=== PATIENT | female | born 1955 | race Caucasian/White ===

== ENCOUNTER 2020-01-04 13:15 | Outpatient (CLI) | payer MEDICARE, SELFPAY ==
--- NOTE | 2020-01-04 13:27 | XR_ITS ---
WS: [id number] XR lumbar spine 2-3V* [id number] REASON FOR EXAM: back pain FINDINGS: Scoliotic curve convex to the right is seen. There is settling of the disc space L1-L2 from degenerate disc changes. The lumbosacral angle was normal. There were no fractures of the vertebral bodies seen. XR/XR lumbar spine 2-3V* [id number] IMPRESSION: Scoliosis convex to the right Degenerated disc changes L1-L2.
== END 2020-01-04 13:16 | disposition home or self-care (01) ==
LOC: RAD 13:21
PROVIDERS: PCP Nurse Practitioner Family; Visit Provider Nurse Practitioner Family
DX: M54.41 Lumbago with sciatica, right side (principal); M47.896 Other spondylosis, lumbar region
CPT/HCPCS: 72100

== ENCOUNTER → 2020-03-14 09:04 | Outpatient (BNVA) | payer MEDICARE, SELFPAY | PROVIDERS: PCP Nurse Practitioner Family; Visit Provider Emergency Medicine | DX: R68.89 Other general symptoms and signs (principal); R11.0 Nausea; Z11.59 Encounter for screening for other viral diseases; R50.9 Fever, unspecified | CPT/HCPCS: 87400; 87635 ==

== ENCOUNTER → 2020-05-30 09:51 | Outpatient (BNVA) | payer MEDICARE, SELFPAY | PROVIDERS: PCP Nurse Practitioner Family; Visit Provider Emergency Medicine | DX: M54.5 Low back pain (principal); M25.511 Pain in right shoulder | CPT/HCPCS: 73030 ==

== ENCOUNTER → 2020-06-05 18:36 | Outpatient (BNVA) | payer MEDICARE, SELFPAY | PROVIDERS: PCP Nurse Practitioner Family; Visit Provider Family Medicine | DX: M54.5 Low back pain (principal); Z12.39 Encounter for other screening for malignant neoplasm of breast; Z13.820 Encounter for screening for osteoporosis; M85.80 Other specified disorders of bone density and structure, unspecified site; R53.83 Other fatigue; R63.5 Abnormal weight gain; E55.9 Vitamin D deficiency, unspecified; Z13.220 Encounter for screening for lipoid disorders; Z13.6 Encounter for screening for cardiovascular disorders; I10 Essential (primary) hypertension; Z78.0 Asymptomatic menopausal state | CPT/HCPCS: 80053; 80061; 82652; 84443; 85025 ==

== ENCOUNTER 2020-06-07 09:54 | Outpatient (CLI) | payer MEDICARE, SELFPAY ==
--- NOTE | 2020-06-07 10:00 | CT_ITS ---
WS: [id number] CT LUMBAR SPINE TECHNIQUE: Noncontrast CT of the lumbar spine with coronal and sagittal reformatted images. CLINICAL INFORMATION: low back pain, chronic, with right leg radiculopathy COMPARISON: None. DLP: 9.[address] scans at [facility] use at least one of these dose optimization techniques: automat ed exposure control; mA and/or kV adjustment per patient size (includes targeted exams where dose is matched to clinical indication); or iterative reconstruction. FINDINGS: Lumbar scoliosis convex right. No acute compression fractures. L1-L2: Moderate facet arthropathy. Spinal canal foramen are patent. L2-L3: Mild disc bulging with mild central canal stenosis. Slight impingement left subarticular reces s. Mild left foraminal narrowing. Moderate facet arthropathy. L3-L4: Mild disc bulging with moderate central canal stenosis. Mild left and no right foraminal narro wing. Moderate facet arthropathy. Impingement on the left subarticular recess. L4-L5: Mild disc bulging with osteophytic ridging. Moderate to severe central canal stenosis. Advance d facet arthropathy. Moderate right and no significant left foraminal narrowing. Impingement subartic ular recess bilaterally. L5-S1: Shallow central disc extrusion. Slight contact of the traversing S1 nerve roots. Foramen are p atent. Moderate facet arthropathy. Visualized pelvic bony structures: Normal. Paravertebral soft tissues: Normal. CT/CT lumbar spine wo con* [id number] IMPRESSION: 1. Lumbar scoliosis convex right. No acute compression fractures. 2. Moderate central canal stenosis L3-4 and moderate to severe central canal s tenosis L4-5 due to disc bulging with facet arthropathy and ligamentum flavum h ypertrophy. 3. Mild central canal stenosis L3-4 with slight impingement on the left subart icular recess. 4. Multilevel mild to moderate foraminal narrowing described above worse at ri ght L4-5. 5. Moderate to advanced facet arthropathy L3-L4 and L4-L5.
== END 2020-06-07 09:55 | disposition home or self-care (01) ==
PROVIDERS: PCP Family Medicine; Visit Provider Emergency Medicine
DX: G89.29 Other chronic pain (principal); M54.16 Radiculopathy, lumbar region; M48.061 Spinal stenosis, lumbar region without neurogenic claudication; M47.816 Spondylosis without myelopathy or radiculopathy, lumbar region
CPT/HCPCS: 72131

== ENCOUNTER 2020-07-23 13:38 | Outpatient (CLI) | payer MEDICARE, SELFPAY ==
--- NOTE | 2020-07-23 14:00 | MM_ITS ---
WS: [id number] BILATERAL DIGITAL SCREENING MAMMOGRAPHY WITH CAD CLINICAL INFORMATION: Screening HISTORY: Screening mammogram. Bilateral breast soreness. Bilateral palpable areas. COMPARISON: None. TECHNIQUE: Bilateral CC and MLO views. FINDINGS: Palpable markers upper outer both breasts. The breasts are composed of heterogeneous fibroglandular density tissue, which can limit the detectio n of small underlying mass lesions. No suspicious mass, asymmetry, calcifications, or architectural d istortion. Slight spiculated asymmetry deep to the palpable marker upper outer left breast. No defini te mammographic abnormalities deep to the right palpable marker. Spot compression views and ultrasoun d recommended for the palpable areas of concern. MM/[place] [id number] IMPRESSION: BI-RADS: 0-Incomplete: Need additional imaging evaluation FOLLOW UP: Need Additional Imaging BILATERAL PALPABLE MARKER BOTH BREASTS. RECOMMEND SPOT COMPRESSION VIEWS AND UL TRASOUND OF THE PALPABLE AREAS BILATERAL BREASTS.
--- NOTE | 2020-07-23 14:47 | XR_ITS ---
WS: [id number] DEXA (DUAL ENERGY X-RAY ABSORPTIOMETRY) Bone mineral density was performed using a Genie[employer] machine. HISTORY: Screening, hx osteopenia COMPARISON: None available. Lumbar spine BMD (L1-L4): 1.182 g/cm2 T score: 0.0 Z score: 1.3 Total hip BMD: Left: 0.818 g/cm2. T score: -1.5 Z score: -0.5 Right: 0.825 g/cm2. T score: -1.4 Z score: -0.4 10 year probability of a major osteoporotic fracture is 11%. XR/XR DEXA axial skeleton* [id number] IMPRESSION: OSTEOPENIA based upon the WHO classification for females.
== END 2020-07-23 13:39 | disposition home or self-care (01) ==
LOC: RADSHAW 13:42
PROVIDERS: PCP Family Medicine; Visit Provider Family Medicine
DX: Z12.31 Encounter for screening mammogram for malignant neoplasm of breast (principal); M85.80 Other specified disorders of bone density and structure, unspecified site; Z13.820 Encounter for screening for osteoporosis; Z78.0 Asymptomatic menopausal state; N64.89 Other specified disorders of breast
CPT/HCPCS: 77067; 77080

== ENCOUNTER 2020-08-26 08:05 | Outpatient (CLI) | payer MEDICARE, SELFPAY ==
--- NOTE | 2020-08-26 08:17 | US_ITS ---
WS: [id number] BILATERAL DIGITAL DIAGNOSTIC MAMMOGRAM MAMMOGRAPHY WITH CAD CLINICAL INFORMATION: BILATERAL PALPABLE AREAS COMPARISON: July 23, 2020 TECHNIQUE: Bilateral CC, MLO, and ML views. FINDINGS: The breasts are composed of heterogeneous fibroglandular density, which can limit the detection of sm all underlying mass lesions. Bilateral palpable markers. Dense parenchymal tissue upper outer left br east is unchanged. Ultrasound is pending. ULTRASOUND BREAST BILATERAL TECHNIQUE: Ultrasound bilateral breast focused area of concern. CLINICAL INFORMATION: BILATERAL PALPABLE AREAS COMPARISON: None. FINDINGS: Ultrasound right breast at the 9:00 to 3:00 position. A few dilated ducts. Tiny benign-appearing cyst s. No pathologic lesions. No lesions to target for biopsy. Ultrasound left breast at the 12:00 to 2 position. Dense parenchymal tissue. A few incidental dilated ducts. No suspicious lesions. No lesions to target for biopsy. US/US breast BI limited* [id number] IMPRESSION: BI-RADS: 2-Benign FOLLOW UP: 1 Year Follow-up Recommend return to annual screening mammography.
== END 2020-08-26 08:06 | disposition home or self-care (01) ==
LOC: RADSHAW 08:14
PROVIDERS: PCP Family Medicine; Visit Provider Family Medicine
DX: R92.8 Other abnormal and inconclusive findings on diagnostic imaging of breast (principal)
CPT/HCPCS: 76642; 77066

== ENCOUNTER → 2021-01-19 10:31 | Outpatient (BNVA) | payer MEDICARE, SELFPAY | PROVIDERS: PCP Family Medicine; Visit Provider Nurse Practitioner Family | DX: R07.89 Other chest pain (principal); I10 Essential (primary) hypertension; E03.9 Hypothyroidism, unspecified | CPT/HCPCS: 80048; 84439; 84443; 84481 ==

== ENCOUNTER → 2021-07-29 09:32 | Outpatient (BNVA) | payer MEDICARE, SELFPAY | PROVIDERS: PCP Family Medicine; Visit Provider Family Medicine | DX: M54.5 Low back pain; E03.9 Hypothyroidism, unspecified; I10 Essential (primary) hypertension; J30.1 Allergic rhinitis due to pollen; R53.83 Other fatigue; E78.2 Mixed hyperlipidemia; M70.61 Trochanteric bursitis, right hip; N95.1 Menopausal and female climacteric states; J45.40 Moderate persistent asthma, uncomplicated; R53.82 Chronic fatigue, unspecified; N95.9 Unspecified menopausal and perimenopausal disorder | CPT/HCPCS: 80053; 80061; 83001; 83002; 84439; 84443; 84481; 85025 ==

== ENCOUNTER 2021-10-24 10:31 | Emergency (ER) | payer MEDICARE, OTHER, SELFPAY ==
[2021-10-24 10:38] VITALS: BP 158/78; PULSE 79; RESP 16; TEMP 36.7; O2SAT 95; BMI 32.2
--- NOTE | 2021-10-24 10:52 | CT_ITS ---
WS: [id number] CT CERVICAL SPINE HISTORY: fall, romano TECHNIQUE: Contiguous 2.5 mm axial imaging performed through the entire cervical spine. Sagittal and coronal reformats also performed. All CT scans at [facility] use at least one of these dose o ptimization techniques: automated exposure control; mA and/or kV adjustment per patient size (include s targeted exams where dose is matched to clinical indication); or iterative reconstruction. DLP: 560.45 mGy.cm COMPARISON: None available. Straightening of the normal cervical lordosis. Prior anterior cervical fusion with plate and screws e xtends from C4 to C7. There is partial. Complete fusion across the C3 C4-5, C5-6 and C6-7 disc spaces . No hardware fracture identified. There is a small bony osteophyte protruding posteriorly from the b ase of the odontoid. No contact on the cord. Mild disc space narrowing at C7-T1. C2-C3: Vertebral body osteophytes encroaching into the central thecal sac. Very mild central and RIGH T foraminal stenosis. C3-C4: Bilateral facet joint arthritis, most significant on the RIGHT. Moderate RIGHT foraminal and m ild LEFT foraminal stenosis. C4-C5: No stenosis or fracture. C5-C6: No stenosis or fracture. C6-C7: No stenosis or fracture. C7-T1: No stenosis or fracture. Thyroid. Small centimeter nodule in the atrophy RIGHT thyroid. CT/CT cervical spin wo con* [id number] IMPRESSION: 1. No cervical spine fracture. 2. Prior anterior cervical fusion from C4 to C7 with no fractures involving th e hardware. 3. Moderate foraminal stenosis on the RIGHT at C3-4.
--- NOTE | 2021-10-24 10:52 | CT_ITS ---
WS: [id number] CT HEAD NONCONTRAST HISTORY: fall, romano, vomiting TECHNIQUE: Contiguous axial imaging performed through the brain in 2.5 mm imaging. Bone and soft tiss ue windows. Sagittal and coronal reformats reviewed. All CT scans at [facility] use at least one of these dose optimization techniques: automated exposure control; mA and/or kV adjustment per pa tient size (includes targeted exams where dose is matched to clinical indication); or iterative recon struction. DLP: 920.23 mGy.cm COMPARISON: None available. No acute intracranial hemorrhage, midline shift or mass effect. No atrophy or prior infarcts or herniation. Mild chronic microvascular ischemic disease. Ventricles: Normal size with no hydrocephalus. Paranasal sinuses: As visualized are clear. Mastoid air cells: Well pneumatized. Calvarium and scalp: No skull fracture. There is a small amount of induration in the soft tissues ove r the lateral LEFT frontal bone from the recent trauma. CT/CT head wo con* [id number] IMPRESSION: 1. No acute intracranial hemorrhage or edema. 2. Minimal soft tissue induration from the trauma over the LEFT lateral fronta l bone.
--- NOTE | 2021-10-24 11:02 | XR_ITS ---
WS: [id number] LEFT WRIST: 3 VIEW(S) TECHNIQUE: PA, oblique and lateral. HISTORY: fall COMPARISON: None available. Complex radial fracture with extension into the radiocarpal joint. Slight impaction and dorsal angula tion. No joint space abnormality. Large amount of soft tissue edema surrounding the wrist. XR/XR wrist LT min 3V* [id number] IMPRESSION: Comminuted, mildly displaced intra-articular fracture distal radius.
--- NOTE | 2021-10-24 11:02 | XR_ITS ---
WS: [id number] LEFT FOREARM 2 VIEWS HISTORY: fall COMPARISON: None available. Complex fracture with mild comminution and impaction involving the radius with extension to the radio carpal joint. Very slight posterior angulation. The ulna is intact. Mild diffuse soft tissue edema around the distal forearm. XR/XR forearm LT 2V [id number] IMPRESSION: 1. Complex fracture involving the distal radius with slight dorsal angulation and intra-articular extension. 2. No ulnar fracture.
--- NOTE | 2021-10-24 11:25 | ED_ITS ---
HPI - Extremity Problem General: Chief complaint: Extremity Injury, Upper Stated complaint: PT said has broken L arm Time Seen by Provider: 10/24/21 10:47 History of Present Illness: HPI Narrative: Patient complains about left wrist pain and head injury from a fall this morning. Patient said she is walk across the floor tripped landed on her left side with her arm outstretched striking her hand and her left orthodoxy area. Did have a headache afterwards and vomited x1. MD Complaint: extremity pain and other (Head injury) Onset (ago): minute(s) Pain Consistency: constant Location: left and upper extremity Severity scale (1-10): 5 Quality: aching Radiation: proximal and distal Relieving factors: immobilization Exacerbating factors: range of motion and palpation Associated symptoms: Reports no associated symptoms; Deny chest pain, fever(s) or rash Review of Systems Const: Denies: fever(s), chills or body aches Eyes: Denies: change in vision or blurry vision ENMT: Denies: throat pain or nasal congestion Card: Denies: chest pain or dyspnea on exertion Resp: Denies: dyspnea, productive cough or non-productive cough GI: Reports: vomiting (X1 after a fall); Denies: abdominal pain or nausea Musc: Reports: extremity pain and joint pain (Left wrist) Skin/Breast: Reports: other (Abrasion to left orthodoxy); Denies: rash Neuro: Reports: headache(s) Psych: Denies: anxiety or depression Charly/Lymph: Denies: easy bruising PFSH ED PFSH: Medical History Allergic rhinitis Hypertension Low back pain potentially associated with radiculopathy Mixed hyperlipidemia Osteopenia after menopause Vitamin D deficiency Family History Family/Other Diabetes Other CAD (coronary artery disease) Hypertension Social History Alcohol intake: never Current gender identity: Female Female Reproductive History: Spontaneous abortions: No Physical Exam Const: COMMON NORMALS: no acute distress, average body habitus and patient oriented x3 HENMT: COMMON NORMALS: normocephalic HEAD & SCALP: normal to inspection and normocephalic FACE & SINUS: normal facial exam Eye: COMMON NORMALS: conjunctivae normal GENERAL EYE: appearance normal, both eyes and all related structures CONJUNCTIVA: Yes conjunctivae normal Neck/C-Spine: COMMON NORMALS: no JVD Chest: COMMONS NORMALS: normal inspection of the chest Resp: COMMON NORMALS: normal respiratory effort and clear to auscultation bilaterally AUSCULTATION: clear to auscultation bilaterally Cardio: COMMON NORMALS: no JVD, regular rate and regular rhythm RATE: regular rate RHYTHM: regular rhythm GI: COMMON NORMALS: Normal to inspection, nondistended, normoactive bowel sounds present Extremity: RIGHT UPPER EXTREMITY: Yes wrist (Tender with swelling radial side. Decreased range of motion to fingers due) Right wrist: Yes neurovascular exam (Intact warm and good sensation distally at the fracture) Neuro: COMMON NORMALS: patient oriented x3 and moves all extremities GAIT: Yes Normal gait present Skin: NARRATIVE SKIN EXAM: Small abrasion left orthodoxy area Course Vital Signs: Vital signs: Vital Signs Temperature 98.0 F 10/24/21 10:38 Pulse Rate 79 10/24/21 10:38 Respiratory Rate 16 10/24/21 10:38 Blood Pressure 158/78 10/24/21 10:38 Pulse Oximetry 95 10/24/21 10:38 Discharge Plan Discharge Prescriptions: No Action Zyrtec 10 mg capsule 10 mg PO QDAY RF: 0 hydralazine 10 mg tablet 10 mg PO BID PRN (Reason: very high blood pressure) 30 Days Qty: 30 RF: 0 tramadol 50 mg tablet 50 mg PO Q6H PRN (Reason: pain) Qty: 20 RF: 0 levothyroxine 25 mcg tablet 25 mcg PO DAILY 30 Days Qty: 30 RF: 5 spironolactone 25 mg tablet 25 mg PO DAILY 30 Days Qty: 30 RF: 5 montelukast 10 mg tablet 10 mg PO DAILY 30 Days Qty: 30 RF: 5 budesonide-formoterol [Symbicort] 160-4.5 mcg/actuation HFA aerosol inhaler 2 puff inhalation BID 30 Days Qty: 10.2 RF: 5 albuterol sulfate 90 mcg/actuation HFA aerosol inhaler 2 puff inhalation Q6H PRN (Reason: shortness of breath or wheezing) Qty: 8.5 RF: 5 cyclobenzaprine 10 mg tablet 10 mg PO TID PRN (Reason: muscle spasm) 30 Days Qty: 60 RF: 5 gabapentin 300 mg capsule 900 mg PO TID 30 Days Qty: 270 RF: 5 nitroglycerin 0.4 mg tablet, sublingual 0.4 mg SUBLINGUAL Q5M PRN (Reason: chest pain) Qty: 25 RF: 2 coenzyme Q10 100 mg capsule 100 mg PO DAILY RF: 0 metoprolol succinate 25 mg tablet extended release 24 hr 25 mg PO BID 30 Days Qty: 60 RF: 5 prednisone 20 mg tablet 40 mg PO DAILY 5 Days Qty: 10 RF: 0 doxycycline monohydrate 100 mg capsule 100 mg PO BID 10 Days Qty: 20 RF: 0 Coding Level of Care Code ED [employer]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
--- NOTE | 2021-10-24 11:50 | PC.NURSE ---
meghan su to apply volar splint.
[2021-10-24] MEDS: HYDROcodone-acetaminophen 5-325 mg Tablet 1 TAB PO (12:00)
[2021-10-24 12:08] VITALS: BP 152/93; PULSE 77; RESP 16; O2SAT 96
--- NOTE | 2021-10-28 09:22 | DCPLANNER ---
locker room manager had message to schedule a follow up appointment for patient with ortho. locker room manager called the ortho clinic, spoke with Kathleen, gave clinic patients information. locker room manager was told that patients information would be printed and reviewed. Clinic will call patient with appointment information.
--- NOTE | 2021-10-29 06:37 | DCPLANNER ---
Patient has a follow up appointment scheduled for Wednesday, October at 2:[address] Franz at [facility]. Clinic will call patient with appointment information.
--- NOTE | 2021-10-30 06:10 | DCPLANNER ---
Patient had a follow up appointment scheduled for 10.29.[address] Franz at [facility] - patient did attend appointment.
== END 2021-10-24 12:19 | disposition home or self-care (01) ==
PROVIDERS: Emergency Provider Nurse Practitioner Family; PCP Family Medicine
DX: S52.572A Other intraarticular fracture of lower end of left radius, initial encounter for closed fracture (principal); W19.XXXA Unspecified fall, initial encounter; S09.90XA Unspecified injury of head, initial encounter; M48.02 Spinal stenosis, cervical region
CPT/HCPCS: 29125; 70450; 72125; 73090; 73110; 99283

== ENCOUNTER → 2021-10-28 14:29 | Outpatient (BNVA) | payer MEDICARE, OTHER, SELFPAY | PROVIDERS: PCP Family Medicine; Visit Provider Nurse Practitioner Family | DX: R07.81 Pleurodynia (principal) | CPT/HCPCS: 71110 ==

== ENCOUNTER 2021-10-29 16:31 | Outpatient (CLI) | payer MEDICARE, OTHER, SELFPAY | END 2021-10-29 16:32 | disposition home or self-care (01) | LOC: SPT 16:31 | PROVIDERS: PCP Family Medicine; Visit Provider Specialist | DX: Z46.89 Encounter for fitting and adjustment of other specified devices (principal); S52.591D Other fractures of lower end of right radius, subsequent encounter for closed fracture with routine healing; X58.XXXD Exposure to other specified factors, subsequent encounter | CPT/HCPCS: 97760; L3982 ==

== ENCOUNTER → 2021-11-12 09:22 | Outpatient (BNVA) | payer MEDICARE, OTHER, SELFPAY | PROVIDERS: PCP Family Medicine; Visit Provider Specialist | DX: S52.592A Other fractures of lower end of left radius, initial encounter for closed fracture (principal); X58.XXXA Exposure to other specified factors, initial encounter | CPT/HCPCS: 73110 ==

== ENCOUNTER → 2021-11-27 08:15 | Outpatient (BNVA) | payer MEDICARE, OTHER, SELFPAY | PROVIDERS: PCP Family Medicine; Visit Provider Specialist | DX: S52.592A Other fractures of lower end of left radius, initial encounter for closed fracture (principal); M25.512 Pain in left shoulder; X58.XXXA Exposure to other specified factors, initial encounter | CPT/HCPCS: 73030; 73110 ==

== ENCOUNTER → 2021-12-15 15:26 | Outpatient (BNVA) | payer MEDICARE, OTHER, SELFPAY | PROVIDERS: PCP Family Medicine; Visit Provider Specialist | DX: S52.592A Other fractures of lower end of left radius, initial encounter for closed fracture (principal); X58.XXXA Exposure to other specified factors, initial encounter | CPT/HCPCS: 73110 ==

== ENCOUNTER 2021-12-22 06:00 | Outpatient (RCR) | payer MEDICARE, OTHER, SELFPAY | END 2021-12-29 23:59 | disposition home or self-care (01) | LOC: MOT 06:00 | PROVIDERS: PCP Family Medicine; Referring Provider Specialist; Visit Provider Specialist | DX: S52.92XD Unspecified fracture of left forearm, subsequent encounter for closed fracture with routine healing (principal) | CPT/HCPCS: 97018; 97110; 97140; 97166 ==

== ENCOUNTER 2021-12-29 14:26 | Outpatient (CLI) | payer MEDICARE, OTHER, SELFPAY ==
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
== END 2021-12-29 14:27 | disposition home or self-care (01) ==
LOC: RAD 14:28
PROVIDERS: PCP Family Medicine; Visit Provider Specialist
DX: G44.309 Post-traumatic headache, unspecified, not intractable (principal)
CPT/HCPCS: 70551

== ENCOUNTER 2021-12-30 06:00 | Outpatient (RCR) | payer MEDICARE, SELFPAY | END 2022-01-29 23:59 | disposition home or self-care (01) | LOC: MOT 06:00 | PROVIDERS: PCP Family Medicine; Referring Provider Specialist; Visit Provider Specialist | DX: S52.502D Unspecified fracture of the lower end of left radius, subsequent encounter for closed fracture with routine healing (principal); X58.XXXD Exposure to other specified factors, subsequent encounter | CPT/HCPCS: 97018; 97110; 97140 ==

== ENCOUNTER → 2022-01-26 10:16 | Outpatient (BNVA) | payer MEDICARE, SELFPAY | PROVIDERS: PCP Family Medicine; Visit Provider Specialist | DX: S52.592A Other fractures of lower end of left radius, initial encounter for closed fracture (principal); S52.502A Unspecified fracture of the lower end of left radius, initial encounter for closed fracture; M25.519 Pain in unspecified shoulder; S62.102A Fracture of unspecified carpal bone, left wrist, initial encounter for closed fracture; X58.XXXA Exposure to other specified factors, initial encounter | CPT/HCPCS: 73110 ==

== ENCOUNTER 2022-01-30 06:00 | Outpatient (RCR) | payer MEDICARE, SELFPAY | END 2022-02-28 23:59 | disposition home or self-care (01) | LOC: MOT 06:00 | PROVIDERS: PCP Family Medicine; Referring Provider Specialist; Visit Provider Specialist | DX: S52.502D Unspecified fracture of the lower end of left radius, subsequent encounter for closed fracture with routine healing (principal); X58.XXXD Exposure to other specified factors, subsequent encounter | CPT/HCPCS: 97018; 97110; 97140 ==

== ENCOUNTER → 2022-02-03 13:05 | Outpatient (BNVA) | payer MEDICARE, SELFPAY | PROVIDERS: PCP Family Medicine; Referring Provider Specialist; Visit Provider Orthopaedic Surgery | DX: M47.22 Other spondylosis with radiculopathy, cervical region (principal); Z98.1 Arthrodesis status; M54.2 Cervicalgia | CPT/HCPCS: 72050; 99203; 99204 ==

== ENCOUNTER → 2022-02-03 13:05 | Outpatient (BNVA) | payer MEDICARE, SELFPAY | PROVIDERS: PCP Family Medicine; Referring Provider Specialist; Visit Provider Orthopaedic Surgery | DX: M54.2 Cervicalgia (principal); M47.22 Other spondylosis with radiculopathy, cervical region | CPT/HCPCS: 72050 ==

== ENCOUNTER 2022-02-10 10:01 | Outpatient (CLI) | payer MEDICARE, SELFPAY ==
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
--- NOTE | 2022-02-10 10:15 | MR_ITS ---
WS: [id number] MRI CERVICAL SPINE NONCONTRAST AND CONTRAST TECHNIQUE: Sagittal T1, T2 and STIR imaging. Axial T2, gradient, and fiesta imaging. Post gadolinium images obtained. CLINICAL INFORMATION: pain COMPARISON: CT October 24, 2021 FINDINGS: Straightening of the normal cervical lordosis. Prior postoperative changes anterior cervical fusion C 4-C7 with interbody fusion. Hardware appears unchanged compared to October 24, 2021. No high-grade c entral canal stenosis. Cord signal is normal. C2-C3: No significant disc bulging. Moderate RIGHT bony foraminal narrowing. Moderate RIGHT facet art hropathy. Spinal canal is patent. C3-C4: Mild disc osteophyte complex with endplate ridging. Mild central canal stenosis. Moderate to a dvanced RIGHT facet arthropathy with moderate RIGHT bony foraminal narrowing. C4-C5: Postoperative changes ACDF. Moderate facet arthropathy. Spinal canal and foramen are patent. C5-C6: Postoperative changes ACDF. Moderate facet arthropathy. Spinal canal and foramen are patent. C6-C7: Postoperative changes ACDF. Spinal canal is patent. Mild RIGHT and no significant LEFT foramin al narrowing. Mild facet arthropathy. C7-T1: Postoperative changes anterior fusion at C7. Spinal canal is patent. Mild bilateral foraminal narrowing. Visualized brain stem structures: Normal. Prevertebral soft tissues: Normal. MR/MR cervical spine wo/w [id number] IMPRESSION: 1. Straightening of the normal cervical lordosis with prior ACDF C4-C7. No hig h-grade central canal stenosis. 2. Alignment is unchanged since the prior CT October 24, 2021. 3. Moderate to advanced RIGHT C3-C4 facet arthropathy with moderate RIGHT C3-C 4 bony foraminal narrowing. 4. Mild central canal stenosis C3-C4 due to mild disc osteophyte complex. 5. Moderate RIGHT C2-C3 bony foraminal narrowing with moderate RIGHT facet art hropathy. 6. Spinal canal and foramen are patent at the fusion levels. 7. Moderate facet arthropathy C4-C5 C5-C6. 8. Mild bilateral C7-T1 bony foraminal narrowing.
== END 2022-02-10 10:02 | disposition home or self-care (01) ==
LOC: RAD 10:03
PROVIDERS: PCP Family Medicine; Visit Provider Orthopaedic Surgery
DX: S52.502A Unspecified fracture of the lower end of left radius, initial encounter for closed fracture (principal); S53.32XA Traumatic rupture of left ulnar collateral ligament, initial encounter; S63.592A Other specified sprain of left wrist, initial encounter; X58.XXXA Exposure to other specified factors, initial encounter; M47.812 Spondylosis without myelopathy or radiculopathy, cervical region; M48.02 Spinal stenosis, cervical region
CPT/HCPCS: 72156; 73221; A9577

== ENCOUNTER → 2022-02-26 13:47 | Outpatient (BNVA) | payer MEDICARE, SELFPAY | PROVIDERS: PCP Family Medicine; Visit Provider Orthopaedic Surgery | DX: Z09 Encounter for follow-up examination after completed treatment for conditions other than malignant neoplasm (principal); M48.02 Spinal stenosis, cervical region | CPT/HCPCS: 99213 ==

== ENCOUNTER → 2022-03-05 10:59 | Outpatient (BNVA) | payer MEDICARE, SELFPAY | PROVIDERS: PCP Family Medicine; Referring Provider Specialist; Visit Provider Specialist | DX: G56.02 Carpal tunnel syndrome, left upper limb (principal); G44.309 Post-traumatic headache, unspecified, not intractable; M47.22 Other spondylosis with radiculopathy, cervical region; F32.9 Major depressive disorder, single episode, unspecified; F43.10 Post-traumatic stress disorder, unspecified | CPT/HCPCS: 95908; 99204 ==

== ENCOUNTER → 2022-03-17 09:07 | Outpatient (BNVA) | payer MEDICARE, SELFPAY | PROVIDERS: PCP Family Medicine; Visit Provider Family Medicine | DX: I10 Essential (primary) hypertension (principal); E03.9 Hypothyroidism, unspecified | CPT/HCPCS: 80048; 84443 ==

== ENCOUNTER → 2022-03-24 10:58 | Outpatient (BNVA) | payer MEDICARE, SELFPAY | PROVIDERS: PCP Family Medicine; Visit Provider Orthopaedic Surgery | DX: M54.50 Low back pain, unspecified (principal); G56.02 Carpal tunnel syndrome, left upper limb | CPT/HCPCS: 99213 ==

== ENCOUNTER → 2022-04-02 08:44 | Outpatient (BNVA) | payer MEDICARE, SELFPAY | PROVIDERS: PCP Family Medicine; Visit Provider Specialist | DX: S52.572D Other intraarticular fracture of lower end of left radius, subsequent encounter for closed fracture with routine healing (principal); X58.XXXD Exposure to other specified factors, subsequent encounter | CPT/HCPCS: 99213 ==

== ENCOUNTER 2022-04-06 11:42 | Emergency (ER) | payer MEDICARE, SELFPAY ==
[2022-04-06 12:12] VITALS: BP 127/70; PULSE 89; RESP 18; TEMP 36.6; O2SAT 96; BMI 30.2
--- NOTE | 2022-04-06 12:17 | XRR_ITS ---
PROCEDURE INFORMATION: Exam: XR Chest Exam date and time: 04/06/2022 12:23 PM Age: 66 years old Clinical indication: Cough and shortness of breath; Patient HX: SOB, cough, chest pain along mediastinum upon inhalation, x 2 wks TECHNIQUE: Imaging protocol: XR of the chest. Views: 1 view. COMPARISON: CR Chest 1 [place] [id number] 01/17/2019 10:46 AM FINDINGS: Lungs: Left lower lobe atelectasis is seen.. No consolidation. Pleural spaces: Unremarkable. No pleural effusion. No pneumothorax. Heart/Mediastinum: Unremarkable. No cardiomegaly. Bones/joints: Metallic orthopedic hardware cervical spine Comparison to prior examination similar findings seen XR/XR chest 1V portable [id number] IMPRESSION: No acute findings. Stable orthopedic hardware cervical spine
--- NOTE | 2022-04-06 12:41 | W.ED.GENADLT ---
Documented by User: [email or web address] Birto 04/07/22 07:25 HPI - General Adult General: Chief complaint: General Medical Stated complaint: PCP sent due to lungs Time Seen by Provider: 04/06/22 12:18 History of Present Illness: Patient is a 66-year-old female comes to the ED with cough and wheezing. Patient has a history of asthma and uses Symbicort and albuterol inhaler. She has been having to use her albuterol inhaler multiple times a day for the past week. She says that her cough and wheezing started approximately 2 weeks ago. Cough has continued to progress and get worse. Cough is productive with white and yellow sputum. She reports having a fever 2 days ago. Associated symptoms: Reports dyspnea; Deny chest pain, headache(s), nausea, rash, palpitations or vomiting Review of Systems Const: Reports: fever(s); Denies: chills or fatigue Eyes: Denies: change in vision or eye discomfort ENMT: Denies: throat pain, odynophagia, nasal discharge or nasal congestion Card: Denies: chest pain, palpitations, edema, swelling of feet/ankles, dyspnea on exertion or orthopnea Resp: Reports: dyspnea, productive cough and wheezing; Denies: non-productive cough GI: Denies: abdominal pain, nausea, vomiting, diarrhea, constipation or hematochezia : Denies: flank pain, dysuria or hematuria Musc: Denies: neck pain, back pain or extremity swelling Skin/Breast: Denies: rash or new lesions Neuro: Denies: headache(s), numbness in extremities or weakness in extremities [facility] ED PFSH: Medical History Allergic rhinitis Hypertension Low back pain potentially associated with radiculopathy MDD (major depressive disorder) Mixed hyperlipidemia Osteopenia after menopause Psychiatric care Vitamin D deficiency Family History Family/Other Diabetes Other CAD (coronary artery disease) Hypertension Social History Smoking and tobacco status: never smoked Alcohol intake: never Current gender identity: Female Female Reproductive History: Spontaneous abortions: No Physical Exam Const: COMMON NORMALS: patient oriented x3 and alert GENERAL APPEARANCE: cooperative HENMT: COMMON NORMALS: normocephalic HEAD & SCALP: normocephalic MOUTH: Normal oral and palatal mucosa present THROAT: posterior oropharynx normal and uvula midline Eye: COMMON NORMALS: Equal, round and reactive pupils present and conjunctivae normal CONJUNCTIVA: Yes conjunctivae normal PUPIL: Yes Equal, round and reactive pupils present Neck/C-Spine: COMMON NORMALS: supple GENERAL: Yes normal visual inspection Resp: COMMON NORMALS: normal respiratory effort, No retractions and No use of accessory muscles EFFORT & INSPECTION: Yes Actively coughing dry AUSCULTATION: wheezes expiratory wheezes and throughout and diminished lung sounds bilateral in the lower lung bradley Cardio: COMMON NORMALS: regular rate, regular rhythm, S1 normal heart sound present, S2 normal heart sound present, No gallops present (Cardio), No clicks present (Cardio), No murmurs present (Cardio) and Peripheral pulses 2+ throughout RATE: regular rate RHYTHM: regular rhythm HEART SOUNDS: S1 normal heart sound present and S2 normal heart sound present PERIPHERAL PULSES: Peripheral pulses 2+ throughout GI: COMMON NORMALS: Normal to inspection, nondistended, normoactive bowel sounds present, Soft to palpation, non-tender and no masses PALPATION: Yes Soft to palpation : COMMON NORMALS: Yes no CVA tenderness BLADDER/KIDNEY EXAM: Yes no CVA tenderness Back/Pelvis: COMMON NORMALS: no CVA tenderness Extremity: COMMON NORMALS: normal to inspection Neuro: COMMON NORMALS: patient oriented x3 and moves all extremities SENSORIUM/ORIENTATION: Yes alert Skin: GENERAL SKIN EXAM: dry skin Course Vital Signs: Vital signs: Vital Signs Temperature 97.9 F 04/06/22 12:12 Pulse Rate 90 04/06/22 14:34 Respiratory Rate 18 04/06/22 14:34 Blood Pressure 127/70 04/06/22 12:12 Pulse Oximetry 96 04/06/22 14:34 [facility] - General Adult Medical Decision Making Patient is a 66-year-old female comes to the ED with cough and wheezing. She has a history of asthma and uses albuterol and Symbicort inhalers. Symptoms have been going on now for 2 weeks and her cough is productive. Vitals are stable and patient is O2 saturation is 96% on room air. Upon exam patient does have some active dry coughing with expiratory wheezes throughout her lungs bilaterally. Rest of exam is benign. Chest x-ray shows no pneumonia. CBC and CMP were unremarkable. Influenza and COVID were both negative. Patient was given 2 DuoNeb breathing treatments here in the ED and some Solu-Medrol. Patient was stable for discharge home. Patient diagnosed with bronchitis and was discharged home with a prescription for prednisone and azithromycin. She is told to follow-up with her PCP in the next week for reevaluation. Return to ED precautions given. Patient understood and agreed with plan. Lab Data I reviewed the patient's lab results. : 04/06/22 13:00 04/06/22 13:00 Radiology Impressions Chest X-Ray 04/06/22 12:17 IMPRESSION: No acute findings. Stable orthopedic hardware cervical spine Laboratory Results WBC 4.8 10^3/uL (4.0-10.0) 04/06/22 13:00 RBC 4.14 10^6/uL (4.1-5.3) 04/06/22 13:00 Hgb 13.1 g/dL (11.5-15.3) 04/06/22 13:00 Hct 40.9 % (37.0-47.0) 04/06/22 13:00 MCV 98.8 fl (81-99) 04/06/22 13:00 MCH 31.6 pg (28.0-34.0) 04/06/22 13:00 MCHC 32.0 g/dL (30.0-36.0) 04/06/22 13:00 RDW 13.6 % (12.1-15.1) 04/06/22 13:00 Plt Count 261 10^3/cmm (130-400) 04/06/22 13:00 MPV 10.1 fL (7.4-10.4) 04/06/22 13:00 Neut % (Auto) 52.9 % 04/06/22 13:00 Lymph % (Auto) 28.9 % 04/06/22 13:00 Mathews % (Auto) 8.8 % 04/06/22 13:00 Eos % (Auto) 8.4 % 04/06/22 13:00 Baso % (Auto) 0.6 % 04/06/22 13:00 Neut # (Auto) 2.53 10^3/uL (1.8-7.7) 04/06/22 13:00 Lymph # (Auto) 1.4 10^3/uL (0.8-4.8) 04/06/22 13:00 Mathews # (Auto) 0.4 10^3/uL (0.2-0.9) 04/06/22 13:00 Eos # (Auto) 0.4 10^3/uL (0.0-0.8) 04/06/22 13:00 Baso # (Auto) 0.0 10^3/uL (0.0-0.1) 04/06/22 13:00 Nucleated RBC % (auto) 0 % 04/06/22 13:00 Nucleated RBCs # 0.0 /100WBC 04/06/22 13:00 Sodium 142 mmol/L (136-145) 04/06/22 13:00 Potassium 3.5 mmol/L (3.5-5.1) 04/06/22 13:00 Chloride 106 mmol/L (98-107) 04/06/22 13:00 Carbon Dioxide 25 mmol/L (22-29) 04/06/22 13:00 Anion Gap 14.5 (5-19) 04/06/22 13:00 BUN 7 mg/dL (8-23) L 04/06/22 13:00 Creatinine 0.7 mg/dL (0.5-0.9) 04/06/22 13:00 GFR Calculation 83.5 mL/min (90-130) L 04/06/22 13:00 Glucose 93 mg/dL (65-115) 04/06/22 13:00 Calculated Osmolality 292 mOsm/kg (285-295) 04/06/22 13:00 Calcium 8.7 mg/dL (8.5-10.5) 04/06/22 13:00 Total Bilirubin 0.2 mg/dL (0.15-1.2) 04/06/22 13:00 AST 25 U/L (0-32) 04/06/22 13:00 ALT 30 U/L (0-33) 04/06/22 13:00 Alkaline Phosphatase 88 IU/L (35-105) 04/06/22 13:00 Total Protein 6.6 g/dL (6.6-8.7) 04/06/22 13:00 Albumin 4.2 g/dL (3.5-5.2) 04/06/22 13:00 Globulin 2.4 g/dL (1.3-4.6) 04/06/22 13:00 Nasal Influ A H1 2009 PCR Not detected (NOT DETECT) 04/06/22 13:00 Coronavirus 229E (PCR) Not detected (NOT DETECT) 04/06/22 13:00 Influenza A (H1) PCR Not detected (NOT DETECT) 04/06/22 13:00 Influenza A (H3) PCR Not detected (NOT DETECT) 04/06/22 13:00 Influenza Type A (PCR) Not detected (NOT DETECT) 04/06/22 13:00 Influenza Type B (PCR) Not detected (NOT DETECT) 04/06/22 13:00 SARS-CoV-2 (PCR) Not detected (NOT DETECT) 04/06/22 13:00 Discharge Plan Discharge Patient Disposition: Home Clinical Impression: Bronchitis Condition: Stable Prescriptions: New azithromycin 250 mg tablet See Rx Instructions .ROUTE .COMPLEX Qty: 6 0RF Rx Instructions: For 250 mg dose pack: take 500 mg today (day 1), then 250 mg for 4 days (days 2-5) prednisone 20 mg tablet 20 mg PO BID 5 Days Qty: 10 0RF No Action Zyrtec 10 mg capsule 10 mg PO QDAY 0RF cyclobenzaprine 10 mg tablet 10 mg PO TID PRN (Reason: muscle spasm) 30 Days Qty: 60 5RF (DME) fast form cock up See Rx Instructions .ROUTE .MEDSUPPLY Qty: 1 0RF Rx Instructions: As directed nitroglycerin 0.4 mg tablet, sublingual 0.4 mg SUBLINGUAL Q5M PRN (Reason: chest pain) Qty: 25 2RF Rx Instructions: do not exceed 3 doses per episode coenzyme Q10 100 mg capsule 100 mg PO DAILY 0RF amitriptyline 50 mg tablet 50 mg PO .at bedtime 30 Days Qty: 30 3RF sertraline 50 mg tablet See Rx Instructions PO DAILY 30 Days Qty: 60 3RF Rx Instructions: take one tab po daily x 2 weeks then take 2 tabs po daily if tolerated. nystatin 100,000 unit/mL suspension 1,000,000 unit buccal DAILY Qty: 480 2RF Rx Instructions: administer 1/2 of dose in each side of the mouth and swish and spit or swallow albuterol sulfate 90 mcg/actuation HFA aerosol inhaler 2 puff inhalation Q6H PRN (Reason: shortness of breath or wheezing) Qty: 8.5 5RF budesonide-formoterol [Symbicort] 160-4.5 mcg/actuation HFA aerosol inhaler 2 puff inhalation BID 30 Days Qty: 10.2 5RF gabapentin 300 mg capsule 900 mg PO TID 30 Days Qty: 270 5RF metoprolol succinate 25 mg tablet extended release 24 hr 25 mg PO DAILY 30 Days Qty: 30 5RF levothyroxine 25 mcg tablet See Rx Instructions .ROUTE .COMPLEX Qty: 30 5RF Dose Instruction: TAKE ONE TABLET BY MOUTH DAILY FOR 30 DAYS Rx Instructions: TAKE ONE TABLET BY MOUTH DAILY FOR 30 DAYS montelukast 10 mg tablet See Rx Instructions .ROUTE .COMPLEX Qty: 30 5RF Dose Instruction: TAKE ONE TABLET BY MOUTH EVERY DAY Rx Instructions: TAKE ONE TABLET BY MOUTH EVERY DAY omeprazole 40 mg capsule,delayed release(DR/EC) 40 mg PO DAILY 90 Days Qty: 90 1RF spironolactone 25 mg tablet 25 mg PO DAILY 30 Days Qty: 30 5RF Discharge Orders: Discharge ED (Routine); Ordered 04/06/22 Ordered By: Benton Loaiza Referrals: Monica Minaya MD [Primary Care Provider] - Discharge Diet: Regular Discharge Activity: Increase activity as tolerated Patient Instructions: Acute Bronchitis (ED) Activity Restrictions/Additional Instructions: Follow-up with medical provider as directed in the next 5 to 7 days reevaluation. COVID and influenza swabs are pending and if they are positive [facility] will call you with that result. If you do not hear anything from [facility] you can call a peer to find out results. You were given a dose of IV steroid here in the ED, so you do not need to take your first dose of prednisone till tomorrow. Start antibiotic prescription today. Take medications as prescribed. Return to the ER or your medical provider if condition worsens. Please read and understand discharge instructions. Thank you for choosing [facility] for your healthcare needs today. Please realize this is an emergency room and that we are providing you with a medical screening exam and this may not be complete and all inclusive of all the testing and or work up that you may need to determine your ailment or severity of your illness. It is very important that you follow up as instructed or that you return to the Emergency Department should you have concerns or if your condition changes or worsens in any way. Coding Level of Care Code ED Federal Appellate Clerk for [place] Fwd Exam Comprehensive Documented by User: Duarte Schmidt DO 04/08/22 21:37 HPI - General Adult General: Chief complaint: General Medical Stated complaint: PCP sent due to lungs Time Seen by Provider: 04/06/22 12:18 PFSH ED PFSH: Medical History Allergic rhinitis Hypertension Low back pain potentially associated with radiculopathy MDD (major depressive disorder) Mixed hyperlipidemia Osteopenia after menopause Psychiatric care Vitamin D deficiency Family History Family/Other Diabetes Other CAD (coronary artery disease) Hypertension Social History Smoking and tobacco status: never smoked Alcohol intake: never Current gender identity: Female Course Vital Signs: Vital signs: Vital Signs Temperature 97.9 F 04/06/22 12:12 Pulse Rate 90 04/06/22 14:34 Respiratory Rate 18 04/06/22 14:34 Blood Pressure 127/70 04/06/22 12:12 Pulse Oximetry 96 04/06/22 14:34 MDM - General Adult Medical Decision Making Patient is a 66-year-old female comes to the ED with cough and wheezing. She has a history of asthma and uses albuterol and Symbicort inhalers. Symptoms have been going on now for 2 weeks and her cough is productive. Vitals are stable and patient is O2 saturation is 96% on room air. Upon exam patient does have some active dry coughing with expiratory wheezes throughout her lungs bilaterally. Rest of exam is benign. Chest x-ray shows no pneumonia. CBC and CMP were unremarkable. Influenza and COVID were both negative. Patient was given 2 DuoNeb breathing treatments here in the ED and some Solu-Medrol. Patient was stable for discharge home. Patient diagnosed with bronchitis and was discharged home with a prescription for prednisone and azithromycin. She is told to follow-up with her PCP in the next week for reevaluation. Return to ED precautions given. Patient understood and agreed with plan. Chart reviewed and patient discussed with midlevel. Agree with assessment and plan. Lab Data : 04/06/22 13:00 04/06/22 13:00 Radiology Impressions Chest X-Ray 04/06/22 12:17 IMPRESSION: No acute findings. Stable orthopedic hardware cervical spine Laboratory Results WBC 4.8 10^3/uL (4.0-10.0) 04/06/22 13:00 RBC 4.14 10^6/uL (4.1-5.3) 04/06/22 13:00 Hgb 13.1 g/dL (11.5-15.3) 04/06/22 13:00 Hct 40.9 % (37.0-47.0) 04/06/22 13:00 MCV 98.8 fl (81-99) 04/06/22 13:00 MCH 31.6 pg (28.0-34.0) 04/06/22 13:00 MCHC 32.0 g/dL (30.0-36.0) 04/06/22 13:00 RDW 13.6 % (12.1-15.1) 04/06/22 13:00 Plt Count 261 10^3/cmm (130-400) 04/06/22 13:00 MPV 10.1 fL (7.4-10.4) 04/06/22 13:00 Neut % (Auto) 52.9 % 04/06/22 13:00 Lymph % (Auto) 28.9 % 04/06/22 13:00 Mathews % (Auto) 8.8 % 04/06/22 13:00 Eos % (Auto) 8.4 % 04/06/22 13:00 Baso % (Auto) 0.6 % 04/06/22 13:00 Neut # (Auto) 2.53 10^3/uL (1.8-7.7) 04/06/22 13:00 Lymph # (Auto) 1.4 10^3/uL (0.8-4.8) 04/06/22 13:00 Mathews # (Auto) 0.4 10^3/uL (0.2-0.9) 04/06/22 13:00 Eos # (Auto) 0.4 10^3/uL (0.0-0.8) 04/06/22 13:00 Baso # (Auto) 0.0 10^3/uL (0.0-0.1) 04/06/22 13:00 Nucleated RBC % (auto) 0 % 04/06/22 13:00 Nucleated RBCs # 0.0 /100WBC 04/06/22 13:00 Sodium 142 mmol/L (136-145) 04/06/22 13:00 Potassium 3.5 mmol/L (3.5-5.1) 04/06/22 13:00 Chloride 106 mmol/L (98-107) 04/06/22 13:00 Carbon Dioxide 25 mmol/L (22-29) 04/06/22 13:00 Anion Gap 14.5 (5-19) 04/06/22 13:00 BUN 7 mg/dL (8-23) L 04/06/22 13:00 Creatinine 0.7 mg/dL (0.5-0.9) 04/06/22 13:00 GFR Calculation 83.5 mL/min (90-130) L 04/06/22 13:00 Glucose 93 mg/dL (65-115) 04/06/22 13:00 Calculated Osmolality 292 mOsm/kg (285-295) 04/06/22 13:00 Calcium 8.7 mg/dL (8.5-10.5) 04/06/22 13:00 Total Bilirubin 0.2 mg/dL (0.15-1.2) 04/06/22 13:00 AST 25 U/L (0-32) 04/06/22 13:00 ALT 30 U/L (0-33) 04/06/22 13:00 Alkaline Phosphatase 88 IU/L (35-105) 04/06/22 13:00 Total Protein 6.6 g/dL (6.6-8.7) 04/06/22 13:00 Albumin 4.2 g/dL (3.5-5.2) 04/06/22 13:00 Globulin 2.4 g/dL (1.3-4.6) 04/06/22 13:00 Nasal Influ A H1 2008 PCR Not detected (NOT DETECT) 04/06/22 13:00 Coronavirus 229E (PCR) Not detected (NOT DETECT) 04/06/22 13:00 Influenza A (H1) PCR Not detected (NOT DETECT) 04/06/22 13:00 Influenza A (H3) PCR Not detected (NOT DETECT) 04/06/22 13:00 Influenza Type A (PCR) Not detected (NOT DETECT) 04/06/22 13:00 Influenza Type B (PCR) Not detected (NOT DETECT) 04/06/22 13:00 SARS-CoV-2 (PCR) Not detected (NOT DETECT) 04/06/22 13:00 Discharge Plan Discharge Patient Disposition: Home Clinical Impression: Bronchitis Condition: Stable Prescriptions: New azithromycin 250 mg tablet See Rx Instructions .ROUTE .COMPLEX Qty: 6 0RF Rx Instructions: For 250 mg dose pack: take 500 mg today (day 1), then 250 mg for 4 days (days 2-5) prednisone 20 mg tablet 20 mg PO BID 5 Days Qty: 10 0RF No Action Zyrtec 10 mg capsule 10 mg PO QDAY 0RF cyclobenzaprine 10 mg tablet 10 mg PO TID PRN (Reason: muscle spasm) 30 Days Qty: 60 5RF (DME) fast form cock up See Rx Instructions .ROUTE .MEDSUPPLY Qty: 1 0RF Rx Instructions: As directed nitroglycerin 0.4 mg tablet, sublingual 0.4 mg SUBLINGUAL Q5M PRN (Reason: chest pain) Qty: 25 2RF Rx Instructions: do not exceed 3 doses per episode coenzyme Q10 100 mg capsule 100 mg PO DAILY 0RF amitriptyline 50 mg tablet 50 mg PO .at bedtime 30 Days Qty: 30 3RF sertraline 50 mg tablet See Rx Instructions PO DAILY 30 Days Qty: 60 3RF Rx Instructions: take one tab po daily x 2 weeks then take 2 tabs po daily if tolerated. nystatin 100,000 unit/mL suspension 1,000,000 unit buccal DAILY Qty: 480 2RF Rx Instructions: administer 1/2 of dose in each side of the mouth and swish and spit or swallow albuterol sulfate 90 mcg/actuation HFA aerosol inhaler 2 puff inhalation Q6H PRN (Reason: shortness of breath or wheezing) Qty: 8.5 5RF budesonide-formoterol [Symbicort] 160-4.5 mcg/actuation HFA aerosol inhaler 2 puff inhalation BID 30 Days Qty: 10.2 5RF gabapentin 300 mg capsule 900 mg PO TID 30 Days Qty: 270 5RF metoprolol succinate 25 mg tablet extended release 24 hr 25 mg PO DAILY 30 Days Qty: 30 5RF levothyroxine 25 mcg tablet See Rx Instructions .ROUTE .COMPLEX Qty: 30 5RF Dose Instruction: TAKE ONE TABLET BY MOUTH DAILY FOR 30 DAYS Rx Instructions: TAKE ONE TABLET BY MOUTH DAILY FOR 30 DAYS montelukast 10 mg tablet See Rx Instructions .ROUTE .COMPLEX Qty: 30 5RF Dose Instruction: TAKE ONE TABLET BY MOUTH EVERY DAY Rx Instructions: TAKE ONE TABLET BY MOUTH EVERY DAY omeprazole 40 mg capsule,delayed release(DR/EC) 40 mg PO DAILY 90 Days Qty: 90 1RF spironolactone 25 mg tablet 25 mg PO DAILY 30 Days Qty: 30 5RF Discharge Orders: Discharge ED (Routine); Ordered 04/06/22 Ordered By: Benton Loaiza Referrals: Monica Minaya MD [Primary Care Provider] - Discharge Diet: Regular Discharge Activity: Increase activity as tolerated Patient Instructions: Acute Bronchitis (ED) Activity Restrictions/Additional Instructions: Follow-up with medical provider as directed in the next 5 to 7 days reevaluation. COVID and influenza swabs are pending and if they are positive [facility] will call you with that result. If you do not hear anything from [facility] you can call a peer to find out results. You were given a dose of IV steroid here in the ED, so you do not need to take your first dose of prednisone till tomorrow. Start antibiotic prescription today. Take medications as prescribed. Return to the ER or your medical provider if condition worsens. Please read and understand discharge instructions. Thank you for choosing [facility] for your healthcare needs today. Please realize this is an emergency room and that we are providing you with a medical screening exam and this may not be complete and all inclusive of all the testing and or work up that you may need to determine your ailment or severity of your illness. It is very important that you follow up as instructed or that you return to the Emergency Department should you have concerns or if your condition changes or worsens in any way. Coding Level of Care Code ED Federal Appellate Clerk for [place] Fwd Exam Comprehensive
[2022-04-06 13:19] LABS: Basophils % 0.6 %; Eosinophils # 0.4 10^3/uL (0.0-0.8); Eosinophils % 8.4 %; Hematocrit 40.9 % (37.0-47.0); Hemoglobin 13.1 g/dL (11.5-15.3); Lymphocytes # 1.4 10^3/uL (0.8-4.8); Lymphocytes % 28.9 %; Mean Corpuscular Hemoglobin 31.6 pg (28.0-34.0); Mean Corpuscular Volume 98.8 fl (81-99); Mean Platelet Volume 10.1 fL (7.4-10.4); Monocytes # 0.4 10^3/uL (0.2-0.9); Monocytes % 8.8 %; Neutrophils # 2.53 10^3/uL (1.8-7.7); Neutrophils % 52.9 %; Nucleated Red Blood Cells % 0 %; Platelet Count 261 10^3/cmm (130-400); Red Blood Count 4.14 10^6/uL (4.1-5.3); Red Cell Distribution Width 13.6 % (12.1-15.1); White Blood Count 4.8 10^3/uL (4.0-10.0)
[2022-04-06 13:46] LABS: Alanine Aminotransferase 30 U/L (0-33); Albumin Level 4.2 g/dL (3.5-5.2); Alkaline Phosphatase 88 IU/L (35-105); Anion Gap 14.5 (5-19); Aspartate Amino Transferase 25 U/L (0-32); Blood Urea Nitrogen 7 mg/dL (8-23); Calcium 8.7 mg/dL (8.5-10.5); Carbon Dioxide 25 mmol/L (22-29); Chloride 106 mmol/L (98-107); Globulin 2.4 g/dL (1.3-4.6); Glomerular Filtration Rate 83.5 mL/min (90-130); Glucose 93 mg/dL (65-115); Osmolality Calculated 292 mOsm/kg (285-295); Potassium 3.5 mmol/L (3.5-5.1); Sodium 142 mmol/L (136-145); Total Bilirubin 0.2 mg/dL (0.15-1.2); Total Protein 6.6 g/dL (6.6-8.7)
[2022-04-06] MEDS: ipratropium-albuterol 3 mL Neb 6 ML INHALATION (14:25)
[2022-04-06 14:27] VITALS: PULSE 89; RESP 18; O2SAT 96
[2022-04-06 14:34] VITALS: PULSE 90; RESP 18; O2SAT 96
[2022-04-06 16:05] LABS: Adenovirus Not Detected (NOT DETECT); Chlamydia Pneumoniae Not Detected (NOT DETECT); Coronavirus 229E,HKU1,NL63,OC4 Not Detected (NOT DETECT); Human Metapneumovirus Not Detected (NOT DETECT); Human Rhinovirus/Enterovirus Not Detected (NOT DETECT); Influenza A Not Detected (NOT DETECT); Influenza A H1 Not Detected (NOT DETECT); Influenza A H1-2009 Not Detected (NOT DETECT); Influenza A H3 Not Detected (NOT DETECT); Influenza B Not Detected (NOT DETECT); Mycoplasma Pneumoniae Not Detected (NOT DETECT); Parainfluenza Virus Type 1 Not Detected (NOT DETECT); Parainfluenza Virus Type 2 Not Detected (NOT DETECT); Parainfluenza Virus Type 3 Not Detected (NOT DETECT); Parainfluenza Virus Type 4 Not Detected (NOT DETECT); Respiratory Syncytial Virus A Not Detected (NOT DETECT); Respiratory Syncytial Virus B Not Detected (NOT DETECT); SARS-COV-2 Not Detected (NOT DETECT)
[2022-04-06 17:11] LABS: Results from Genmark
== END 2022-04-06 14:48 | disposition home or self-care (01) ==
PROVIDERS: Emergency Provider Physician Assistant; PCP Family Medicine
DX: J40 Bronchitis, not specified as acute or chronic (principal)
CPT/HCPCS: 71045; 80053; 85025; 87631; 87635; 94640; 96374; 99284; J2930

== ENCOUNTER → 2022-05-06 11:40 | Outpatient (BNVA) | payer MEDICARE, SELFPAY | PROVIDERS: PCP Family Medicine; Visit Provider Emergency Medicine | DX: R06.03 Acute respiratory distress (principal); J20.9 Acute bronchitis, unspecified; J45.901 Unspecified asthma with (acute) exacerbation | CPT/HCPCS: 71046 ==

== ENCOUNTER → 2022-05-26 12:29 | Outpatient (BNVA) | payer MEDICARE, SELFPAY | PROVIDERS: PCP Family Medicine; Visit Provider Internal Medicine Critical Care Medicine | DX: J45.50 Severe persistent asthma, uncomplicated (principal) | CPT/HCPCS: 36415; 82785; 86003; 99204 ==

== ENCOUNTER → 2022-06-10 10:52 | Outpatient (BNVA) | payer MEDICARE, SELFPAY | PROVIDERS: PCP Family Medicine; Visit Provider Family Medicine | DX: M25.512 Pain in left shoulder (principal) | CPT/HCPCS: 73030 ==

== ENCOUNTER → 2022-06-26 09:17 | Outpatient (BNVA) | payer MEDICARE, SELFPAY | PROVIDERS: PCP Family Medicine; Visit Provider Student in an Organized Health Care Education/Training Program | DX: S52.502P Unspecified fracture of the lower end of left radius, subsequent encounter for closed fracture with malunion (principal); X58.XXXD Exposure to other specified factors, subsequent encounter; Y09 Assault by unspecified means; G56.02 Carpal tunnel syndrome, left upper limb | CPT/HCPCS: 73110; 99214 ==

== ENCOUNTER 2022-07-09 09:33 | Outpatient (CLI) | payer MEDICARE, SELFPAY ==
--- NOTE | 2022-07-09 11:11 | PFTS_ITS ---
Date of Study:07/09/22 Date of Dictation: MECHANICS: Forced vital capacity (FVC) is . Forced expiratory volume in one second (FEV1) is . FEV1/FVC is . FLOW VOLUME LOOP: . LUNG VOLUMES: Total lung capacity (TLC) is . Residual volume (RV) is . DIFFUSING CAPACITY FOR CARBON MONOXIDE: . INTERPRETATION: The pulmonary function tests are . mechanics and lung volumes. Gas exchange (DLCO) is . MTDD
== END 2022-07-09 09:34 | disposition home or self-care (01) ==
PROVIDERS: PCP Family Medicine; Visit Provider Internal Medicine Critical Care Medicine
DX: J45.50 Severe persistent asthma, uncomplicated (principal)
CPT/HCPCS: 94060; 94726; 94729; J7611

== ENCOUNTER → 2023-01-26 08:22 | Outpatient (BNVA) | payer MEDICARE, SELFPAY | PROVIDERS: PCP Family Medicine; Visit Provider Family Medicine | DX: M25.511 Pain in right shoulder (principal); M25.551 Pain in right hip; M77.8 Other enthesopathies, not elsewhere classified; J44.9 Chronic obstructive pulmonary disease, unspecified; J45.40 Moderate persistent asthma, uncomplicated; I10 Essential (primary) hypertension; E78.2 Mixed hyperlipidemia; E03.9 Hypothyroidism, unspecified | CPT/HCPCS: 73030; 73502; 80053; 80061; 84443; 85025 ==

== ENCOUNTER 2023-02-10 12:19 | Outpatient (CLI) | payer MEDICARE, SELFPAY ==
--- NOTE | 2023-02-10 13:01 | MM_ITS ---
WS: [id number] BILATERAL 3D TOMOSYNTHESIS DIGITAL SCREENING MAMMOGRAPHY WITH CAD CLINICAL INFORMATION: SCREEN HISTORY: Screening mammogram. No current complaints. COMPARISON: 2020 TECHNIQUE: Bilateral CC and MLO views. FINDINGS: The breasts are composed of heterogeneous fibroglandular density tissue, which can limit the detectio n of small underlying mass lesions. 6 mm ovoid nodular density with some calcifications near the 6 cl ock position LEFT breast. This is nonspecific and recommend further evaluation with spot compression views and ultrasound. RIGHT breast is unchanged and unremarkable. MM/[place] [id number] IMPRESSION: BI-RADS: 0-Incomplete: Need additional imaging evaluation FOLLOW UP: Need Additional Imaging 6 mm ovoid nodule is new from previous near the 6 clock position LEFT breast. R ecommend LEFT breast diagnostic mammography and ultrasound.
--- NOTE | 2023-02-10 13:30 | XR_ITS ---
WS: [id number] SCREENING DEXA SCAN [place] CLINICAL INFORMATION: Z78.0 - Asymptomatic menopausal state COMPARISON: 2019 FINDINGS: The L1-L4 bone mineral density measures 1.184 g/cm2. This corresponds to a T score score of 0.0 and Z score of 1.1. Left femoral neck bone mineral density measures 0.822 g/cm2. This corresponds to a T score of -1.5 an d Z score of -0.5. Right femoral neck bone mineral density measures 0.808 g/cm2. This corresponds to a T score -1.6of an d Z score of -0.6. Mean femoral neck bone mineral density measures 0.815 g/cm2. This corresponds to a T score of -1.5 an d Z score of -0.5. XR/XR DEXA axial skeleton* [id number] IMPRESSION: Normal bone mineralization lumbar spine. Osteopenia femoral necks. Patient's FRAX calculated 10 year probability for major osteoporotic fracture i s 18.2 % and osteoporotic hip fracture is 3.2%. Bone mineralization in the lumbar spine has increased 0.2% since 2020 Bone mineralization femoral necks has decreased -0.7% since 2020.
== END 2023-02-10 12:20 | disposition home or self-care (01) ==
LOC: RAD 12:22
PROVIDERS: PCP Family Medicine; Visit Provider Family Medicine
DX: Z13.820 Encounter for screening for osteoporosis (principal); Z78.0 Asymptomatic menopausal state; Z12.31 Encounter for screening mammogram for malignant neoplasm of breast; M85.88 Other specified disorders of bone density and structure, other site
CPT/HCPCS: 77063; 77067; 77080

== ENCOUNTER 2023-02-15 06:00 | Outpatient (RCR) | payer MEDICARE, SELFPAY | END 2023-02-28 23:59 | disposition home or self-care (01) | LOC: MOT 06:00 | PROVIDERS: PCP Family Medicine; Visit Provider Orthopaedic Surgery Hand Surgery | DX: S63.592D Other specified sprain of left wrist, subsequent encounter (principal); Y99.9 Unspecified external cause status | CPT/HCPCS: 97018; 97022; 97110; 97140; 97166 ==

== ENCOUNTER 2023-02-17 07:20 | Outpatient (CLI) | payer MEDICARE, SELFPAY ==
--- NOTE | 2023-02-17 07:00 | CT_ITS ---
WS: [id number] CT chest w con* [id number] HISTORY: R04.2 - Hemoptysis TECHNIQUE: Axial imaging performed through the thorax. Coronal and sagittal reformats are submitted. All CT scans at [facility] use at least one of these dose optimization techniques: automated exposure control; mA and/or kV adjustment per patient size (includes targeted exams where dose is mat ched to clinical indication); or iterative reconstruction. CONTRAST: Omnipaque 350; 100 mL IV. DLP: 254.37 mGy.cm COMPARISON: None available. Lungs and central airway: Mild dependent changes and atelectasis at the lung bases. No mass or nodule s. No pneumonia. No endobronchial lesions. No bronchiectasis. Pleura: Normal. No pleural effusion. Heart and pericardium: Normal size heart with no pericardial effusion. Mediastinum and sheba: No mediastinum or hilar adenopathy. Vessels: Mild atherosclerosis aorta and ectasia. Normal size pulmonary artery. Chest wall and lower neck: Subcentimeter RIGHT thyroid nodule. Upper abdomen: There are a few scattered low-attenuation masses within the liver consistent with cyst s versus hemangiomas. The largest measures 19 mm and likely hemangioma. No bile duct dilatation. No a drenal mass. Prior cholecystectomy. Osseous structures: No destructive process. CT/CT chest w con* [id number] IMPRESSION: 1. Dependent changes at the lung bases is probably due to poor inspiration. 2. No pneumonia or endobronchial lesions. No bronchiectasis. 3. No adenopathy. 4. Prior cholecystectomy.
[2023-02-17] MEDS: iohexol 350 mg/mL 500 mL Btl (per mL) IV (07:48)
== END 2023-02-17 07:21 | disposition home or self-care (01) ==
LOC: RAD 07:24
PROVIDERS: PCP Family Medicine; Visit Provider Family Medicine
DX: J45.909 Unspecified asthma, uncomplicated (principal); R04.2 Hemoptysis
CPT/HCPCS: 71260; Q9967

== ENCOUNTER 2023-02-18 14:28 | Outpatient (CLI) | payer MEDICARE, SELFPAY ==
--- NOTE | 2023-02-18 14:38 | MM_ITS ---
WS: [id number] LEFT 3D TOMOSYNTHESIS DIGITAL MAMMOGRAPHY WITH CAD CLINICAL INFORMATION: ABNORMAL MAMMO HISTORY: Additional views COMPARISON: February 10, 2023 TECHNIQUE: 3 views of the left breast were obtained. FINDINGS: Scattered fibroglandular densities of the left breast. 6 mm ovoid nodular density near the 5-6 o'cloc k position is persistent today. Ultrasound is described below ULTRASOUND BREAST LEFT TECHNIQUE: Ultrasound left breast focused area of concern. CLINICAL INFORMATION: ABNORMAL MAMMO FINDINGS: Ultrasound LEFT breast at the 6:00 position 3 cm the nipple demonstrates a superficial benign-appeari ng breast cyst measuring 7.9 x 3.1 x 5.2 mm. This corresponds to the mammographic findings. No other suspicious findings. Recommend return to annual screening mammography. MM/[place] [id number] IMPRESSION: BI-RADS: 2-Benign FOLLOW UP: 1 Year Follow-up Recommend return to annual screening mammography.
--- NOTE | 2023-02-18 14:44 | US_ITS ---
WS: [id number] LEFT 3D TOMOSYNTHESIS DIGITAL MAMMOGRAPHY WITH CAD CLINICAL INFORMATION: ABNORMAL MAMMO HISTORY: Additional views COMPARISON: February 10, 2023 TECHNIQUE: 3 views of the left breast were obtained. FINDINGS: Scattered fibroglandular densities of the left breast. 6 mm ovoid nodular density near the 5-6 o'cloc k position is persistent today. Ultrasound is described below ULTRASOUND BREAST LEFT TECHNIQUE: Ultrasound left breast focused area of concern. CLINICAL INFORMATION: ABNORMAL MAMMO FINDINGS: Ultrasound LEFT breast at the 6:00 position 3 cm the nipple demonstrates a superficial benign-appeari ng breast cyst measuring 7.9 x 3.1 x 5.2 mm. This corresponds to the mammographic findings. No other suspicious findings. Recommend return to annual screening mammography. US/US breast LT limited* [id number] IMPRESSION: BI-RADS: 2-Benign FOLLOW UP: 1 Year Follow-up Recommend return to annual screening mammography.
== END 2023-02-18 14:29 | disposition home or self-care (01) ==
LOC: RAD 14:30
PROVIDERS: PCP Family Medicine; Visit Provider Family Medicine
DX: R92.8 Other abnormal and inconclusive findings on diagnostic imaging of breast (principal); N60.02 Solitary cyst of left breast
CPT/HCPCS: 76642; 77061; G0279

== ENCOUNTER 2023-03-01 06:00 | Outpatient (RCR) | payer MEDICARE, SELFPAY | END 2023-03-31 23:59 | disposition home or self-care (01) | LOC: MOT 06:00 | PROVIDERS: PCP Family Medicine; Visit Provider Orthopaedic Surgery Hand Surgery | DX: S63.592D Other specified sprain of left wrist, subsequent encounter (principal); Y99.9 Unspecified external cause status | CPT/HCPCS: 97018; 97110; 97140 ==

== ENCOUNTER → 2023-03-05 10:37 | Outpatient (BNVA) | payer MEDICARE, SELFPAY | PROVIDERS: PCP Family Medicine; Visit Provider Internal Medicine Pulmonary Disease | DX: J45.50 Severe persistent asthma, uncomplicated (principal); R07.89 Other chest pain; Z82.49 Family history of ischemic heart disease and other diseases of the circulatory system; Z79.52 Long term (current) use of systemic steroids | CPT/HCPCS: 99214 ==

== ENCOUNTER → 2023-03-19 09:22 | Outpatient (BNVA) | payer MEDICARE, SELFPAY | PROVIDERS: PCP Family Medicine; Referring Provider Family Medicine; Visit Provider Student in an Organized Health Care Education/Training Program | DX: M70.61 Trochanteric bursitis, right hip (principal) | CPT/HCPCS: 73502; 99213 ==

== ENCOUNTER 2023-04-02 06:34 | Outpatient (CLI) | payer MEDICARE, SELFPAY ==
--- NOTE | 2023-04-02 | ECG_ITS ---
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 Interpretive Statements NAME OF STUDY: LEXISCAN SESTAMIBI STRESS TEST INDICATION: Exertional chest pain PROCEDURE: At the baseline, the blood pressure was 125/72 mm Hg with a heart rate of 75 bpm. The electrocardiogram showed sinus rhythm normal axis with poor anterior R wave progression. The Lexiscan was infused over a period of 20 seconds. A total of 0.4 milligrams of Lexiscan was infused. The stress phase was continued for a total of 5 minutes. Heart rate at the end of the stress phase was 95 bpm with a blood pressure 115/59 mmHg. The EKG at the peak infusion revealed rhythm with no significant ST-T wave changes. Sestamibi was injected 20 seconds after the Lexiscan infusion. Blood pressure at the end of the recovery phase was 117/63 mmHg with a heart rate of 91 beats per minute. CONCLUSION: 1. No significant EKG changes with the LexiScan infusion. 2. No LexiScan induced chest pain or cardiac arrhythmia. 3. Normal blood pressure and heart rate response. 4. Sestamibi/sestamibi perfusion scan pending; see separate report. Electronically Signed On 04-14-2023 17:44:51 CDT by Ragini Khan M.D. [email or web address]
[2023-04-02 07:05] VITALS: BMI 30.2
--- NOTE | 2023-04-02 08:01 | NMCV_ITS ---
NM [place] perf SPECT r/s* [id number] Missy Lopez Age: 67 Gender: F : 1955 Exam Date: 04/02/2023 08:19 Ordering Phys: Amari Moe MD Technologist: RITU Velazquez Exam Location: [facility] Indications: CHEST PAIN, SHORTNESS OF BREATH STRESS TEST Please see separate stress test report in [facility] for full findings IMAGE PROTOCOL Rest/Stress 1 Lexiscan Day Radiopharmaceutical Dose (mCi) Administration Site Administered by Rest: Tc-99m 10.9 IV Andrew Wilson, WELLNESS CONSULTANT Sestamibi Stress:Tc-99m 32.9 IV Andrew Wilson, WELLNESS CONSULTANT Sestamibi Rest: 02-Apr-2023 60 Discovery 630 Stress: 02-Apr-2023 30 Discovery 630 0.4mg Lexiscan. Images obtained in supine and prone position. SPECT RESULTS Technical Quality: Excellent Raw Data Analysis: Normal Image Corrections: No attenuation or motion correction applied Summed Stress Score: 7 Summed Rest Score: 1 Summed Difference Score: 6 PERFUSION FINDINGS Small sized perfusion abnormality of mild severity of mid inferolateral, apical lateral and apical inferior thorpe on supine stress images with improved tracer uptake on prone stress images. FUNCTIONAL RESULTS (calculated via Gated SPECT) Stress Image LV EF (%): 88 Stress EDV (mL):56 TID: 0.93 Stress ESV (mL):7 FUNCTIONAL FINDINGS: The left ventricle is normal in size. Transient Ischemia Dilatation of 0.93. The left ventricular ejection fraction is normal with a value of 88% (overestimated due to small LV cavity). There is hyperdynamic left ventricular wall thickening. IMPRESSIONS 1. Small sized perfusion abnormality of mild severity of mid inferolateral, apical lateral and apical inferior thorpe. 2. This may represent small area of ischemia in circumflex artery territory. However, attenuation artifact cannot be completely ruled out. 3. Overall left ventricular systolic function is normal without regional wall motion abnormalities, LVEF=88%. 4. No prior similar studies to compare. Ragini Khan MD (Electronically Signed) Final Date: 04 April 2023 21:26 S
[2023-04-02] MEDS: regadenoson 0.4 Mg/5 ml Syringe IVP (08:54)
[2023-04-02 09:11] VITALS: BP 117/63; PULSE 91
== END 2023-04-02 06:35 | disposition home or self-care (01) ==
LOC: CDL 06:36
PROVIDERS: PCP Family Medicine; Visit Provider Internal Medicine Pulmonary Disease
DX: R07.9 Chest pain, unspecified (principal); R06.02 Shortness of breath
CPT/HCPCS: 36415; 78452; 93017; 96374; A9500; J2785

== ENCOUNTER 2023-04-30 09:23 | Oncology outpatient (recurring) (ONCR) | payer MEDICARE, SELFPAY ==
[2023-04-30] MEDS: Benralizumab *no charge* 30 mg/ml syringe SUBCUT (10:23)
== END 2023-04-30 23:59 | disposition home or self-care (01) ==
PROVIDERS: PCP Family Medicine; Visit Provider Internal Medicine Pulmonary Disease
DX: J45.50 Severe persistent asthma, uncomplicated (principal); Z79.899 Other long term (current) drug therapy
CPT/HCPCS: 96372

== ENCOUNTER → 2023-05-25 15:18 | Outpatient (BNVA) | payer MEDICARE, SELFPAY | PROVIDERS: PCP Family Medicine; Visit Provider Internal Medicine Cardiovascular Disease | DX: R07.89 Other chest pain (principal) | CPT/HCPCS: 93005; 99204 ==

== ENCOUNTER → 2023-07-16 06:52 | Outpatient (BNVA) | payer MEDICARE, SELFPAY | PROVIDERS: PCP Family Medicine; Visit Provider Student in an Organized Health Care Education/Training Program | DX: M16.11 Unilateral primary osteoarthritis, right hip (principal) | CPT/HCPCS: 20610; 77002; 99213; J3301 ==

== ENCOUNTER → 2023-07-22 08:52 | Outpatient (BNVA) | payer MEDICARE, SELFPAY | PROVIDERS: PCP Family Medicine; Visit Provider Family Medicine | DX: I10 Essential (primary) hypertension (principal); E03.9 Hypothyroidism, unspecified; G47.00 Insomnia, unspecified; F32.A Depression, unspecified; F32.1 Major depressive disorder, single episode, moderate; J30.1 Allergic rhinitis due to pollen; K21.9 Gastro-esophageal reflux disease without esophagitis; J45.50 Severe persistent asthma, uncomplicated | CPT/HCPCS: 80053; 84439; 84443; 84481 ==